=== PATIENT | male | born 2000 | race Caucasian/White ===

== ENCOUNTER 2019-07-19 02:25 | Emergency (ER) | payer BC ==
--- NOTE | 2019-07-19 02:32 | ED ---
Substance Abuse/Use - HPI Summary HPI Summary: The pt is a 18 yr old male presenting to [facility] c/o EtOH abuse beginning several hours [employer]. Per the EMS, the pt has been drinking EtOH and smoking marijuana for the past several hours. He was able to talk to the EMS minimally. LEVEL 5 CAVEAT. Full Hx unobtainable due to pt being intoxicated. - History Of Current Complaint Stated Complaint: ETOH PER EMS Hx Obtained From: Patient Hx From Patient Unobtainable Due To: Other - LEVEL 5 CAVEAT. Full Hx unobtainable due to pt being intoxicated. Onset/Duration of Drug/ETOH Abuse: Hours Ingestion History: Type/Name Of Drug - EtOH Overdose Characteristics: Oral Severity Initially: Moderate Severity Currently: Moderate Aggravating Factor(s): Nothing Alleviating Factor(s): Nothing - Allergies/Home Medications Home Medications: Home Medications Unobtainable 07/19/19 [History Confirmed 07/19/19] PMH/Surg Hx/FS Hx/Imm Hx Sensory History: Denies: Hx Legally Blind, Hx Deafness Opthamlomology History: Denies: Hx Legally Blind EENT History: Denies: Hx Deafness - Family History Family History: LEVEL 5 CAVEAT. Full Hx unobtainable due to pt being intoxicated. - Social History Occupation: Student Lives: Dormitory/Roommates Alcohol Use: Occasionally Review of Systems Positive: Other - pos - intoxicated All Other Systems Reviewed And Are Negative: No - Comments Additional Review of Systems Comments: LEVEL 5 CAVEAT. Full Hx unobtainable due to pt being intoxicated. Physical Exam - Summary Physical Exam Summary: Appearance: Well-appearing, Well-nourished, lying in bed comfortable, intoxicated Skin: Warm, dry, no obvious rash Eyes: sclera anicteric, no conjunctival pallor ENT: mucous membranes moist Neck: deferred Respiratory: No signs of respiratory distress Cardiovascular: Appears well perfused, pulses are nml Abdomen: deferred Musculoskeletal: Moving all 4 extremities without obvious discomfort Neurological:mentation is normal, speech is fluent and appropriate, opens eyes to voices, does not answer questions Psychiatric: affect is normal, does not appear anxious or depressed Triage Information Reviewed: Yes Vital Signs Reviewed: Yes Completion Of Physical Exam Limited Due To: Level 5 - LEVEL 5 CAVEAT. Full Hx unobtainable due to pt being intoxicated. 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 Per the EMS, the pt has been drinking EtOH and smoking marijuana for the past several hours. Test results normal except for serum alcohol 232. Final Dx is alcohol intoxication. The pt will be a sign out to Dr. Wu at the 69907/19/2019 shift change pending sobriety and disposition. - Diagnoses Provider Diagnoses: Alcohol intoxication Discharge ED - Sign-Out/Discharge Documenting (check all that apply): Sign-Out Patient Signing out patient TO: Nikkie Wu - The pt will be a sign out to Dr. Wu at the 69907/19/2019 shift change pending sobriety and disposition. Patient Received Moderate/Deep Sedation with Procedure: No - Discharge Plan Condition: Improved Disposition: HOME Patient Education Materials: Alcohol Intoxication (ED) Referrals: [facility] [Outside] - Billing Disposition and Condition Condition: IMPROVED Disposition: Home - Attestation Statements Document Initiated by Obede: Yes Documenting Scribe: Paresh Soares Provider For Whom Alin is Documenting (Include Credential): Phuc Burt MD Scribe Attestation: IParesh, scribed for Phuc Burt MD on 07/19/19 at 202. Scribe Documentation Reviewed: Yes Provider Attestation: The documentation as recorded by the Paresh tay accurately reflects the service I personally performed and the decisions made by , Phuc Burt MD Status of Scribe Document: Viewed
--- NOTE | 2019-07-19 07:11 | ED ---
Progress - Progress Note Progress Note: This patient is a 19-year old M presenting to [facility] with alcohol intoxication. This patient is a sign-out from Dr. Phuc Burt to Dr. Nikkie Wu at 0700 on 07/19/19 at shift change pending sobriety and disposition. Re-Evaluation - Re-Evaluation First Eval Re-Evaluation Time: 09:14 Change: Improved Comment: Upon re-evalation, patient is awake and oriented. Patient is ambulatory and says he will call a friend to pick him up. Course/Dx - Course Course Of Treatment: This patient is a 19-year old M presenting to [facility] with alcohol intoxication. This patient is a sign-out from Dr. Phuc Burt to Dr. Nikkie Wu at 0700 on 07/19/19 at shift change pending sobriety and disposition. Upon re-evalation, patient is alerted and oriented and ambulatory. Patient will be discharged with dx of alcohol intoxication. Strict return precautions given and he will otherwise follow up with his PCP. - Diagnoses Provider Diagnoses: Alcohol intoxication Discharge ED - Sign-Out/Discharge Documenting (check all that apply): Patient Departure - Discharge Patient Received Moderate/Deep Sedation with Procedure: No - Discharge Plan Condition: Improved Disposition: HOME Patient Education Materials: Alcohol Intoxication (ED) Referrals: [facility] [Outside] - Billing Disposition and Condition Condition: IMPROVED Disposition: Home - Attestation Statements Document Initiated by Alin: Yes Documenting Scribe: Shiraz Contreras Provider For Whom Alin is Documenting (Include Credential): Nikkie Wu MD Scribe Attestation: Shiraz Montelongo scribed for Nikkie Wu MD on 07/19/19 at 1152. Scribe Documentation Reviewed: Yes Provider Attestation: The documentation as recorded by the Shiraz tay accurately reflects the service I personally performed and the decisions made by me, Nikkie Wu MD Status of Scribe Document: Viewed
[2019-07-19 09:07] VITALS: BP 105/63
== END 2019-07-19 09:15 | disposition home or self-care (01) ==
LOC: ED 02:25
DX: F10.129 Alcohol abuse with intoxication, unspecified (principal); F12.10 Cannabis abuse, uncomplicated
CPT/HCPCS: 36415; 80320; 99282; G0480